=== PATIENT | male | born 2000 | race African-American/Black ===

== ENCOUNTER 2019-08-10 08:31 | Day surgery (SDC) | payer OTHER ==
[2019-08-10] MEDS ORDERED: Famotidine/PF 20 mg/2ml Vial ONE (09:30)
[2019-08-10] MEDS ORDERED: Fentanyl 100 MCG/2 ML VIAL ONE ×2 (09:30→09:49)
[2019-08-10] MEDS ORDERED: Midazolam HCl 2 mg/2 ml Vial ONE (09:30)
[2019-08-10] MEDS ORDERED: Ketamine 50 MG/ML (10ML VIAL) ONE (09:30)
[2019-08-10] MEDS ORDERED: Dexamethasone 4 mg/ml Vial ONE (09:33)
[2019-08-10] MEDS ORDERED: Oxymetazoline HCl 0.05% ( 15 ML ) ONE (09:35)
[2019-08-10] MEDS ORDERED: Clindamycin/D5W 600 mg/50 ml Premix Bag ONE (09:35)
[2019-08-10] MEDS ORDERED: Chlorhexidine Gluconate 15 ML UDCUP SSP ONE (09:41)
[2019-08-10] MEDS ORDERED: Lidocaine 1% w/Epinephrine 1:100K 20 ML VIAL ONE (09:41)
[2019-08-10] MEDS ORDERED: Hydrocortisone 1% Cream 30 GM TUBE ONE (09:41)
[2019-08-10] MEDS ORDERED: Succinylcholine Chloride 20 MG/ML 10 ml SYRINGE FS ONE (09:50)
[2019-08-10] MEDS ORDERED: Glycopyrrolate 0.2 MG/ML 5 ML SYRINGE ONE (09:50)
[2019-08-10] MEDS ORDERED: Ondansetron PF 4 MG/2 ML Vial ONE (09:50)
[2019-08-10] MEDS ORDERED: Lidocaine 1% PF 5 ML VIAL ONE (09:50)
[2019-08-10] MEDS ORDERED: PROPOFOL 200 MG/20 ML VIAL ONE (09:50)
--- NOTE | 2019-08-11 10:42 | OP ---
DATE OF PROCEDURE: 08/10/2019 PREOPERATIVE DIAGNOSIS: Impacted wisdom teeth 1, 16, 17, and 32. POSTOPERATIVE DIAGNOSES: Impacted wisdom teeth 1, 16, 17, and 32, periodontal pocketing and pain. COMPLICATIONS: None. SPECIMENS: None. DRAINS: None. DISPOSITION: The patient was stable, extubated, and transferred to the postoperative recovery unit. ESTIMATED BLOOD LOSS: 20 mL. ANESTHESIA: General endotracheal anesthesia, nasal tube. BRIEF HISTORY AND PROCEDURE IN DETAIL: This is a 18-year-old male with severe autism and cerebral palsy, who was having pain per the parents in interpretation of the patient. The patient was found to have impacted wisdom teeth that were malposed and did have periodontal pocketing and inflammation around the distal of the 2nd molars. The patient was taken to the operating room, prepped and draped in sterile fashion. A throat pack was placed. Teeth were brushed with Peridex rinse. Teeth #1 and #16, a 15 blade was used to make a full-thickness mucoperiosteal flap and buccal ostectomy, elevator, removal of the teeth. Curetted the socket with normal saline irrigation, 4-0 chromic gut closure. Teeth #17 and #32, hockey-stick incision over bone was made distal to the 2nd molars. Full-thickness mucoperiosteal flap was made to the buccal drill. Removal of the buccal bone over the teeth was done followed by section of the teeth and elevator removal. Curetted the sockets with normal saline irrigation and closure with 4-0 chromic gut. The patient was injected preoperatively with prior to incision with local anesthetic of 1% lidocaine with 1:100,000 epinephrine, 10 mL were given. At the end the procedure, the throat pack was removed. The patient was hemostatic. The patient's disposition was to the recovery room. The patient was to follow up at our clinic in 1 week. The patient was given Hycet p.o. q.6 hours p.r.n. pain. The patient is also told to take ibuprofen 400 to 600 mg q.6 hours for the next 24 hours. Job ID: [id number]
== END 2019-08-10 13:40 | disposition home or self-care (01) ==
LOC: SDC 08:31
PROVIDERS: ATTEND Dentist Oral and Maxillofacial Surgery
PROC: 0CTX0Z1 Resection of Lower Tooth, Multiple, Open Approach (ICD-10-PCS; principal; 2019-08-10)
PROC: 0CTW0Z1 Resection of Upper Tooth, Multiple, Open Approach (ICD-10-PCS; principal; 2019-08-10)
DX: K01.1 Impacted teeth (principal); F84.0 Autistic disorder; G80.9 Cerebral palsy, unspecified; Z91.011 Allergy to milk products
CPT/HCPCS: J0131; J1100; J2001; J2250; J2405; J2704; J3010; J3490; S0028